=== PATIENT | female | born 1975 | race Caucasian/White ===

== ENCOUNTER 2020-11-27 09:10 | Emergency (ER) | payer SELFPAY ==
[2020-11-27 09:20] VITALS: BP 167/106; PULSE 96; RESP 18; TEMP 37.1; O2SAT 96; BMI 29.0
[2020-11-27 09:46] VITALS: RESP 15
--- NOTE | 2020-11-27 09:54 | ED_ITS ---
HPI - URI/Sore Throat General: Chief Complaint: Upper Respiratory Infection Stated Complaint: sinus pain Time Seen by Provider: 11/27/20 09:17 History of Present Illness: HPI Narrative: Patient is a 45-year-old female comes to the ED with sinus congestion and sore throat. Patient says symptoms started approximately 3 days ago. Patient has a history of sinus infections. she was having some nasal congestion and drainage along with sinus pressure. She saw urgent care Eddie Dotson 3 days ago and was put on doxycycline. She also has a sore throat and noticed a white patch on the back of her throat yesterday. Denies any fever, chills, shortness of breath, chest pain, abdominal pain, nausea/vomiting, bladder or bowel symptoms. Associated symptoms: Reports nasal congestion and sinus pain; Deny abdominal pain, chills, chest pain, diarrhea, fever(s), headache(s), nausea or vomiting Review of Systems Const: Denies: fever(s), chills or fatigue Eyes: Denies: change in vision or eye discomfort ENMT: Reports: throat pain, nasal discharge, nasal congestion and sinus pain; Denies: odynophagia Card: Denies: chest pain, palpitations, edema, swelling of feet/ankles, dyspnea on exertion or orthopnea Resp: Denies: dyspnea, productive cough or non-productive cough GI: Denies: abdominal pain, nausea, vomiting, diarrhea, constipation or hematochezia : Denies: flank pain, dysuria or hematuria Musc: Denies: neck pain, back pain or extremity swelling Skin/Breast: Denies: rash or new lesions Neuro: Denies: headache(s), numbness in extremities or weakness in extremities Physical Exam Const: COMMON NORMALS: no acute distress, patient oriented x3, healthy appearing and alert GENERAL APPEARANCE: cooperative and comfortable HENMT: COMMON NORMALS: normocephalic, EAC's normal, TM's normal bilaterally (Mild fluid behind left ear but otherwise unremarkable), Normal external nose present and moist oral mucous membranes HEAD & SCALP: normocephalic NOSE: Normal external nose present EXTERNAL AUDITORY CANAL: EAC's normal TYMPANIC MEMBRANE: TM's normal bilaterally (Mild fluid behind left ear but otherwise unremarkable) MOUTH: Normal oral and palatal mucosa present THROAT: uvula midline and posterior oropharynx abnormal erythema and other (White patchy area on left side); no exudates Neck/C-Spine: COMMON NORMALS: supple GENERAL: Yes normal visual inspection Resp: COMMON NORMALS: normal respiratory effort, No retractions, No use of accessory muscles and clear to auscultation bilaterally AUSCULTATION: clear to auscultation bilaterally Cardio: COMMON NORMALS: regular rate, regular rhythm, S1 normal heart sound present, S2 normal heart sound present, No gallops present (Cardio), No clicks present (Cardio), No murmurs present (Cardio) and Peripheral pulses 2+ throug hout RATE: regular rate RHYTHM: regular rhythm HEART SOUNDS: S1 normal heart sound present and S2 normal heart sound present PERIPHERAL PULSES: Peripheral pulses 2+ throughout GI: COMMON NORMALS: Normal to inspection, nondistended, normoactive bowel sounds present, Soft to palpation, non-tender and no masses PALPATION: Yes Soft to palpation : COMMON NORMALS: Yes no CVA tenderness BLADDER/KIDNEY EXAM: Yes no CVA tenderness Back/Pelvis: COMMON NORMALS: no CVA tenderness Extremity: COMMON NORMALS: normal to inspection Neuro: COMMON NORMALS: patient oriented x3 and moves all extremities SENSORIUM/ORIENTATION: Yes alert Skin: GENERAL SKIN EXAM: dry skin Course Vital Signs: Vital signs: Vital Signs Temperature 99.4 F 11/27/20 12:19 Pulse Rate 78 11/27/20 12:19 Respiratory Rate 16 11/27/20 12:19 Blood Pressure 118/88 11/27/20 12:19 Pulse Oximetry 98 11/27/20 12:19 MDM - URI/Sore Throat MDM Narrative: Medical decision making narrative: Patient is a 45-year female comes to the ED with sore throat and nasal drainage and congestion and sinus pain. Patient was just put on doxycycline approximately 3 days ago. Exam shows a healthy and nontoxic appearing patient does have some white patches on posterior oropharynx suggesting oral candidiasis. She had some mild bilateral maxillary sinus tenderness. Rapid strep negative. Patient diagnosed with oral candidiasis and maxillary sinusitis. Sent home with a prescription for fluconazole mouthwash, amoxicillin and Medrol Dosepak. Patient told to follow- up with PCP in 7 to 10 days for reevaluation. Return to ED precautions given. Patient understood agree with plan. Lab Data: Attestation: I reviewed the patient's lab results. Labs: Lab Results 09/05/21 Range/Units 10:30 Group A Strep Rapi d Negative (Negative) Discharge Plan Discharge Patient Disposition: Home Clinical Impression: Oral candidiasis Sinusitis Qualifiers: Sinusitis location: maxillary Chronicity: acute Recurrence: non-recurrent Qualified Code(s): J01.00 - Acute maxillary sinusitis, unspecified Condition: Stable Prescriptions: New fluconazole 10 mg/mL suspension for reconstitution 50 mg PO DAILY 7 Days Qty: 35 RF: 0 amoxicillin 500 mg capsule 500 mg PO BID 10 Days Qty: 20 RF: 0 Medrol (Nilesh) 4 mg tablets,dose pack See Rx Instructions .ROUTE .COMPLEX Qty: 21 RF: 0 Discharge Orders: Discharge ED (Routine); Ordered 11/27/20 Ordered By: Jerod Allen Referrals: Cheyenne Gracia FNP-C [Primary Care Provider] - Discharge Diet: Regular Discharge Activity: Increase activity as tolerated Patient Instructions: Sinusitis (ED), Oral Candidiasis (ED) Activity Restrictions/Additional Instructions: Follow-up with medical provider as directed in 7 to 10 days for reevaluation. Stop taking the previously prescribed doxycycline. Start taking the fluconazole mouthwash for the next 4 days before reevaluating and starting the antibiotic and steroid as well. Take medications as prescribed. Drink plenty of fluids and stay hydrated. Take [id number] ibuprofen or Tylenol for any pain or fevers. Return to the ER or your medical provider if condition worsens. Please read and understand discharge instructions. Thank you for choosing [facility] for your healthcare needs today. Please realize this is an emergency room and that we are providing you with a medical screening exam and this may not be complete and all inclusive of all the testing and or work up that you may need to determine your ailment or severity of your illness. It is very important that you follow up as instructed or that you return to the Emergency Department should you have concerns or if your condition changes or worsens in any way. Coding Level of Care Code ED Continuous Absorption Process Operator for Jitendra Carrion Exam Comprehensive
[2020-11-27 11:06] LABS: Rapid Strep A Test Negative (Negative)
[2020-11-27 11:50] VITALS: BP 130/89; PULSE 82; RESP 14; TEMP 37.3; O2SAT 98
[2020-11-27 12:19] VITALS: BP 118/88; PULSE 78; RESP 16; TEMP 37.4; O2SAT 98
== END 2020-11-27 12:20 | disposition home or self-care (01) ==
PROVIDERS: Emergency Provider Physician Assistant; PCP Nurse Practitioner Family
DX: J01.00 Acute maxillary sinusitis, unspecified (principal); B37.0 Candidal stomatitis
CPT/HCPCS: 87081; 87880; 99281